=== PATIENT | female | born 1970 | race Caucasian/White ===

== ENCOUNTER → 2021-03-26 08:38 | Outpatient (BNVA) | payer MEDICAID, SELFPAY | PROVIDERS: PCP Nurse Practitioner Family; Visit Provider Nurse Practitioner Family | DX: E55.9 Vitamin D deficiency, unspecified (principal); I10 Essential (primary) hypertension; R10.11 Right upper quadrant pain; Z79.899 Other long term (current) drug therapy; Z13.6 Encounter for screening for cardiovascular disorders | CPT/HCPCS: 80061; 81003; 82306; 83036; 84439; 84443; 85025 ==

== ENCOUNTER 2021-04-07 22:12 | Emergency (ER) | payer MEDICAID, SELFPAY ==
[2021-04-07 22:27] VITALS: BP 126/64; PULSE 79; RESP 16; TEMP 36.7; O2SAT 98; BMI 43.2
--- NOTE | 2021-04-08 01:29 | ED_ITS ---
HPI - Abdominal Pain General: Chief Complaint: Abdominal Pain Stated Complaint: abd Pain, vomiting brown Time Seen by Provider: 04/08/21 00:39 Source: patient Mode of arrival: ambulatory Limitations: no limitations History of Present Illness: HPI narrative: 50-year-old female who states of last 2 months been having abdominal pain right upper quadrant states it is much worse with eating. States she ate tonight and felt nauseous denies any vomiting but had increasing pain tonight. She states that she supposed to be scheduled for an ultrasound of the gallbladder in May states her pain got much worse tonight. She denies any fevers. Denies any diarrhea. Her pain currently is a 4 out of 10 at its worst was an 8 out of 10. Associated Symptoms: Denies chills, diarrhea, dysuria, fever(s), nausea and vomiting Review of Systems Const: Denies: fever(s), chills, body aches or change in appetite Eyes: Denies: blurry vision or eye discomfort ENMT: Denies: throat pain or dental pain Card: Denies: chest pain Resp: Denies: dyspnea GI: Reports: abdominal pain; Denies: nausea, vomiting or diarrhea : Denies: dysuria Musc: Denies: neck pain or back pain Skin/Breast: Denies: rash Neuro: Denies: headache(s) Psych: Denies: depression Maycol/Lymph: Denies: easy bruising All/Imm: Denies: urticaria PFSH ED PFSH: Medical History (Updated 04/08/21 @ 03:52 by Saloni Heath MD) Essential hypertension Hypertension screen RUQ abdominal pain Vitamin D deficiency Social History Smoking and tobacco status: never smoked Physical Exam Const: COMMON NORMALS: no acute distress, patient oriented x3 and healthy appearing HENMT: COMMON NORMALS: normocephalic and atraumatic HEAD & SCALP: normocephalic and atraumatic Eye: COMMON NORMALS: Equal, round and reactive pupils present and EOMs intact bilaterally PUPIL: Yes Equal, round and reactive pupils present Neck/C-Spine: COMMON NORMALS: full ROM and supple Chest: COMMONS NORMALS: normal inspection of the chest and normal palpation of entire chest wall Resp: COMMON NORMALS: normal respiratory effort, No retractions, No use of accessory muscles and clear to auscultation bilaterally AUSCULTATION: clear to auscultation bilaterally Cardio: COMMON NORMALS: regular rate, regular rhythm and No murmurs present (Cardio) RATE: regular rate RHYTHM: regular rhythm GI: COMMON NORMALS: Normal to inspection, nondistended, normoactive bowel sounds present, Soft to palpation, non-tender and no masses PALPATION: Yes Soft to palpation Extremity: COMMON NORMALS: normal to inspection and full ROM Neuro: COMMON NORMALS: patient oriented x3, moves all extremities and no focal motor deficits Psych: COMMON NORMALS: mental status grossly normal, Normal thought process present and cooperative THOUGHT PROCESS: Normal thought process present Skin: COMMON NORMALS: no rashes or lesions noted and no wounds GENERAL SKIN EXAM: no rashes or lesions noted Course Vital Signs: Vital signs: Vital Signs Temperature 98.1 F 04/07/21 22:27 Pulse Rate 66 04/08/21 02:59 Respiratory Rate 18 04/08/21 02:59 Blood Pressure 151/81 04/08/21 02:59 Pulse Oximetry 100 04/08/21 02:59 MDM - Abdominal Pain MDM Narrative: Medical decision making narrative: Patient presents with abdominal pain likely from biliary colic from gallstones. Patient CT shows no sounds of cholecystitis does have gallstones. Blood work here is normal her pain is much improved here. We will get her follow-up with surgery and she is to return if worsening she understands agrees to plan. Lab Data: Labs: Lab Results 04/07/21 04/07/21 01:35 01:35 WBC 7.5 10^3/uL 10^3/ uL (4.0-10.0) RBC 5.06 10^6/uL 10^6 /uL (4.1-5.3) Hgb 14.1 g/dL g/dL (11.5-15.3) Hct 43.9 % % (37.0-47.0) MCV 86.8 fl fl (81-99) MCH 27.9 pg L pg (28.0-34.0) MCHC 32.1 g/dL g/dL (30.0-36.0) RDW 13.2 % % (12.1-15.1) Plt Count 361 10^3/cmm 10^3 /cmm (130-400) MPV 9.9 fL fL (7.4-10.4) Neut % (Auto) 49.4 % % Lymph % (Auto) 38.1 % % [place] % (Auto) 8.7 % % Eos % (Auto) 2.7 % % Baso % (Auto) 0.8 % % Neut # (Auto) 3.72 10^3/uL 10^3 /uL (1.8-7.7) Lymph # (Auto) 2.9 10^3/uL 10^3/ uL (0.8-4.8) [place] # (Auto) 0.7 10^3/uL 10^3/ uL (0.2-0.9) Eos # (Auto) 0.2 10^3/uL 10^3/ uL (0.0-0.8) Baso # (Auto) 0.1 10^3/uL 10^3/ uL (0.0-0.1) Nucleated RBC % (a uto) 0 % % Nucleated RBCs # 0.0 /100WBC /100W BC Sodium 140 mmol/L mmol/L (136-145) Potassium 3.6 mmol/L mmol/L (3.5-5.1) Chloride 103 mmol/L mmol/L (98-107) Carbon Dioxide 27 mmol/L mmol/L (22-29) Anion Gap 13.6 (5-19) BUN 14 mg/dL mg/dL (6-20) Creatinine 0.7 mg/dL mg/dL (0.5-0.9) GFR Calculation 88.6 mL/min L mL/ min (90-130) Glucose 93 mg/dL mg/dL (65-115) Calculated Osmolal ity 290 mOsm/kg mOsm/ kg (285-295) Calcium 9.3 mg/dL mg/dL (8.5-10.5) Total Bilirubin 0.3 mg/dL mg/dL (0.15-1.2) AST 13 U/L U/L (0-32) ALT 7 U/L U/L (0-33) Alkaline Phosphata se 63 IU/L IU/L (35-105) Total Protein 6.7 g/dL g/dL (6.6-8.7) Albumin 4.0 g/dL g/dL (3.5-5.2) Globulin 2.7 g/dL g/dL (1.3-4.6) Lipase 21 U/L U/L (13-60) Imaging Data ^: CT Abd/Pel: Radiologist's impression: [employer] [address] [employer] [address] [address] Scan Report Signed Patient: Viviane Calderon Unit #: [id number] : 1970 Age/Sex: 50 / F ADM Date: 04/07/21 Loc: ER Room/Bed: Attending Dr: Ordering Provider/Ordering MD: Saloni Heath MD Date of Service: 04/08/21 Procedure(s): CT abdomen pelvis w con* [id number] Accession Number(s): [id number] Report Number: [id number] PROCEDURE INFORMATION: Exam: CT Abdomen And Pelvis With Contrast Exam date and time: 04/08/2021 1:28 AM Age: 50 years old Clinical indication: Abdominal pain; Localized; Right upper quadrant (ruq); Additional info: Abd pain TECHNIQUE: Imaging protocol: Computed tomography of the abdomen and pelvis with contrast. Radiation optimization: All CT scans at this facility use at least one of these dose optimization techniques: automated exposure control; mA and/or kV adjustment per patient size (includes targeted exams where dose is matched to clinical indication); or iterative reconstruction. Contrast material: OMNI 300; Contrast volume: 95 ml; Contrast route: INTRAVENOUS (IV); COMPARISON: No relevant prior studies available. RADIATION DOSE METRICS: Total DLP (mGy-cm): 1928.3 FINDINGS: Lungs: The lung bases are clear. No effusion Liver: Liver is normal. Gallbladder and bile ducts: There is cholelithiasis without wall thickening or pericholecystic fluid. Pancreas: Pancreas is normal. Spleen: Spleen is normal. Adrenal glands: Adrenals are normal. Kidneys and ureters: Kidneys are normal. Stomach and bowel: Unremarkable. No obstruction. No mucosal thickening. Appendix: No evidence of appendicitis. Intraperitoneal space: Unremarkable. No free air. No significant fluid collection. Vasculature: Unremarkable. No abdominal aortic aneurysm. Lymph nodes: Unremarkable. No enlarged lymph nodes. Urinary bladder: Unremarkable as visualized. Reproductive: Unremarkable as visualized. Bones/joints: Unremarkable. No acute fracture. Soft tissues: Unremarkable. CT/CT abdomen pelvis w con* [id number] IMPRESSION: Cholelithiasis without cholecystitis. Radiation Dose CTDIVOL = (mGy): DLP = 1928.3 (mGy-cm) Dictated By: Jet Lennon Signed By: Jet Lennon Signed Date/Time: 04/08/21345 DD/ 0128 Discharge Plan Discharge Patient Disposition: Home Clinical Impression: Cholelithiasis Qualifiers: Cholelithiasis location: gallbladder Cholecystitis presence: without ch olecystitis Biliary obstruction: without biliary obstruction Qualified Code(s): K80.20 - Calculus of gallbladder without cholecystitis without obstruction Condition: Stable Prescriptions: New hydrocodone-acetaminophen 5-325 mg tablet 1 tab PO Q6H PRN (Reason: pain) Qty: 14 RF: 0 ondansetron 4 mg tablet,disintegrating 4 mg PO Q6H PRN (Reason: nausea and vomiting) Qty: 14 RF: 0 No Action omeprazole 40 mg capsule,delayed release(DR/EC) 40 mg PO DAILY RF: 0 lisinopril 5 mg tablet 5 mg PO QDAY Qty: 30 RF: 1 Discharge Orders: Discharge ED (Routine); Ordered 04/08/21 Ordered By: Saloni Heath Referrals: Prosper Davenport MD [Physician] - 1-3 days BOB Clark FNP [Primary Care Provider] - Discharge Diet: Advance as tolerated Discharge Activity: Resume usual activity Patient Instructions: Biliary Colic (ED), Gallstones (ED), Opioid Safety Coding Level of Care Code ED Tight Rope Walker for Chg Fwd Exam Comprehensive
[2021-04-08 01:44] VITALS: RESP 18; O2SAT 18
[2021-04-08] MEDS: sodium chloride 0.9% 1,000 ML 999 ML IV (01:44)
[2021-04-08] MEDS: morphine 4 mg/mL SDV 1 mL IVP (01:44)
[2021-04-08] MEDS: ondansetron 2 mg/ML SDV 2 mL 4 MG IVP (01:44)
[2021-04-08 01:46] VITALS: BP 151/81; PULSE 74; RESP 18; O2SAT 97
[2021-04-08 01:49] LABS: Basophils # 0.1 10^3/uL (0.0-0.1); Basophils % 0.8 %; Eosinophils # 0.2 10^3/uL (0.0-0.8); Eosinophils % 2.7 %; Hematocrit 43.9 % (37.0-47.0); Hemoglobin 14.1 g/dL (11.5-15.3); Lymphocytes # 2.9 10^3/uL (0.8-4.8); Lymphocytes % 38.1 %; Mean Corpuscular HGB Conc 32.1 g/dL (30.0-36.0); Mean Corpuscular Hemoglobin 27.9 pg (28.0-34.0); Mean Corpuscular Volume 86.8 fl (81-99); Mean Platelet Volume 9.9 fL (7.4-10.4); Monocytes # 0.7 10^3/uL (0.2-0.9); Monocytes % 8.7 %; Neutrophils # 3.72 10^3/uL (1.8-7.7); Neutrophils % 49.4 %; Nucleated Red Blood Cells % 0 %; Platelet Count 361 10^3/cmm (130-400); Red Blood Count 5.06 10^6/uL (4.1-5.3); Red Cell Distribution Width 13.2 % (12.1-15.1); White Blood Count 7.5 10^3/uL (4.0-10.0)
[2021-04-08 02:09] LABS: Alanine Aminotransferase 7 U/L (0-33); Alkaline Phosphatase 63 IU/L (35-105); Anion Gap 13.6 (5-19); Aspartate Amino Transferase 13 U/L (0-32); Blood Urea Nitrogen 14 mg/dL (6-20); Calcium 9.3 mg/dL (8.5-10.5); Carbon Dioxide 27 mmol/L (22-29); Chloride 103 mmol/L (98-107); Globulin 2.7 g/dL (1.3-4.6); Glomerular Filtration Rate 88.6 mL/min (90-130); Glucose 93 mg/dL (65-115); Lipase 21 U/L (13-60); Osmolality Calculated 290 mOsm/kg (285-295); Potassium 3.6 mmol/L (3.5-5.1); Sodium 140 mmol/L (136-145); Total Bilirubin 0.3 mg/dL (0.15-1.2); Total Protein 6.7 g/dL (6.6-8.7)
[2021-04-08] MEDS: iohexol 300 mg/mL 100 mL Btl IV (02:30)
[2021-04-08 02:59] VITALS: BP 151/81; PULSE 66; RESP 18; O2SAT 100
[2021-04-08 04:13] VITALS: BP 110/71; PULSE 66; RESP 16; O2SAT 100
--- NOTE | 2021-04-09 09:43 | DCPLANNER ---
manager semiconductor had message to schedule a follow up appointment for patient with Dr. Davenport. manager semiconductor called the office of Dr. Davenport, spoke with Nadege, gave clinic patients information. manager semiconductor was told that patient had called clinic to schedule an appointment, but that patient is needing to be seen by [facility] for the sue program. manager semiconductor emailed patients information to Stephania Daniel and Lisette. Patients information will be printed and reviewed. Clinic will call patient with appointment information.
--- NOTE | 2021-04-10 15:59 | DCPLANNER ---
Patient has a follow up appointment scheduled for Wednesday, April 14, 2021 at 1:[address] Nevarez at [facility] General Surgery. Clinic will call patient with appointment information.
--- NOTE | 2021-04-17 08:21 | DCPLANNER ---
Patient had a follow up appointment scheduled for 04.14.[address] Nevarez at general surgery - patient did attend appointment.
== END 2021-04-08 04:14 | disposition home or self-care (01) ==
PROVIDERS: Emergency Provider Emergency Medicine; PCP Nurse Practitioner Family
DX: K80.20 Calculus of gallbladder without cholecystitis without obstruction (principal); I10 Essential (primary) hypertension
CPT/HCPCS: 74177; 80053; 83690; 85025; 96361; 96374; 96375; 99284; J2270; J2405; J7030; Q9967

== ENCOUNTER 2021-04-18 11:10 | Observation (INO) | payer MEDICAID, SELFPAY ==
[2021-04-18] VITALS (7 sets, daily range): BP systolic 111–131; BP diastolic 47–84; PULSE 67–75; RESP 16–20; TEMP 36.4–37.2; O2SAT 97–98; BMI 43.2; BMI 42.3
--- NOTE | 2021-04-18 11:13 | ED_ITS ---
HPI - Abdominal Pain General: Chief Complaint: Abdominal Pain Stated Complaint: Abdominal Pain Time Seen by Provider: 04/18/21 11:13 History of Present Illness: HPI narrative: Ms. Calderon is a 50-year-old lady with history of hypertension and hyperlipidemia and known cholelithiasis who presents emergency department due to right upper quadrant abdominal pain. Symptom onset has been a number of months ago and symptoms were initially mild and intermittent. Typically these were triggered by fatty meals however over time the course has become more intense, more frequent and she presented to the emergency department on 04/08 was found to have cholelithiasis without cholecystitis at this time. She was referred for outpatient surgery and had an appointment on 04/14 with planned outpatient cholecystectomy. Over the past 2 days her pain is increased in intensity and become constant. Her symptoms are worse with movement. Moderate to severe in intensity. Aching and sharp in quality. She has associated nausea and vomiting as well as diarrhea. She was u nable to tolerate her medications this morning as she vomited them up. No other specific changes in health, signs of systemic illness, or other specific exacerbating or alleviating factors identified. Review of Systems General: Reports: 10 or more systems reviewed and unremarkable except in HPI and below PFSH ED PFSH: Medical History (Updated 04/19/21 @ 15:28 by Diego Nevarez MD) Essential hypertension Hypertension screen RUQ abdominal pain Symptomatic cholelithiasis Vitamin D deficiency Physical Exam Narrative: EXAM NARRATIVE: GENERAL/CONSTITUTIONAL - well-appearing. Uncomfortable appearing due to abdominal pain. Eyes -no scleral icterus, no conjunctival injection ENMT - Atraumatic external nose and ears. Moist mucous membranes NECK - supple. trachea midline CARDIOVASCULAR - regular rate and rhythm. RESPIRATORY -clear to auscultation bilaterally. Mildly limited inspiration with deep inspiration due to right upper quadrant abdominal pain. ABDOMEN/GI - right upper quadrant tenderness to palpation without Tellez. No tenderness to percussion or evidence of peritonitis MSK - Extremities without obvious deformity or tenderness to palpation SKIN - Warm, Dry NEURO - alert and appropriately oriented. Moves all extremities equally. Course ED course: - Patient was seen and evaluated by me at bedside - Patient placed on cardiac monitors, IV access obtained - Initial evaluation notable for nontoxic appearance, uncomfortable due to pain. Right upper quadrant tenderness to palpation. -Symptom treatment ordered. - Labs notable for no leukocytosis, normal transaminases, normal lipase. - Imaging notable for thickened gallbladder wall without other secondary findings of cholecystitis. - Upon serial reexamination after treatment the patient was improved with analgesia transiently - Based on patient history, evaluation, labs, and imaging as interpreted the most likely cause of the patient's condition is symptomatic cholelithiasis with evidence of cholecystitis. - Discussed with Dr Nevarez who agreed to admit the patient. Antibiotics ordered. N.p.o. status. Fluids and pain control ordered. - The results of ED evaluation were discussed with the patient including plan for admission for further evaluation of surgical options. - Patient was admitted without further deterioration or significant events. Vital Signs: Vital signs: Vital Signs Temperature 97.9 F 04/19/21 17:45 Pulse Rate 87 04/19/21 17:45 Respiratory Rate 18 04/19/21 17:45 Blood Pressure 107/69 04/19/21 17:45 Pulse Oximetry 93 04/19/21 17:45 MDM - Abdominal Pain Medical Records: Attestation: I reviewed the patient's medical records. Lab Data: Attestation: I reviewed the patient's lab results. Labs: Lab Results 04/18/21 04/18/21 04/18/21 11:46 11:46 11:46 WBC 6.3 10^3/uL 10^3/ uL (4.0-10.0) RBC 5.26 10^6/uL 10^6 /uL (4.1-5.3) Hgb 14.7 g/dL g/dL (11.5-15.3) Hct 45.1 % % (37.0-47.0) MCV 85.7 fl fl (81-99) MCH 27.9 pg L pg (28.0-34.0) MCHC 32.6 g/dL g/dL (30.0-36.0) RDW 13.4 % % (12.1-15.1) Plt Count 316 10^3/cmm 10^3 /cmm (130-400) MPV 10.7 fL H fL (7.4-10.4) Neut % (Auto) 58.7 % % Lymph % (Auto) 30.3 % % [place] % (Auto) 7.9 % % Eos % (Auto) 2.1 % % Baso % (Auto) 0.8 % % Neut # (Auto) 3.70 10^3/uL 10^3 /uL (1.8-7.7) Lymph # (Auto) 1.9 10^3/uL 10^3/ uL (0.8-4.8) [place] # (Auto) 0.5 10^3/uL 10^3/ uL (0.2-0.9) Eos # (Auto) 0.1 10^3/uL 10^3/ uL (0.0-0.8) Baso # (Auto) 0.1 10^3/uL 10^3/ uL (0.0-0.1) Nucleated RBC % (a uto) 0 % % Nucleated RBCs # 0.0 /100WBC /100W BC Sodium 133 mmol/L L mmol /L (136-145) Potassium 4.0 mmol/L mmol/L (3.5-5.1) Chloride 98 mmol/L mmol/L (98-107) Carbon Dioxide 25 mmol/L mmol/L (22-29) Anion Gap 14.0 (5-19) BUN 11 mg/dL mg/dL (6-20) Creatinine 0.8 mg/dL mg/dL (0.5-0.9) GFR Calculation 75.9 mL/min L mL/ min (90-130) Glucose 84 mg/dL mg/dL (65-115) Calculated Osmolal ity 275 mOsm/kg L mOs m/kg (285-295) Calcium 9.3 mg/dL mg/dL (8.5-10.5) Total Bilirubin 0.7 mg/dL mg/dL (0.15-1.2) AST 11 U/L U/L (0-32) ALT 11 U/L U/L (0-33) Alkaline Phosphata se 57 IU/L IU/L (35-105) Troponin T Baselin e 6 ng/L ng/L (0-10) Total Protein 7.4 g/dL g/dL (6.6-8.7) Albumin 4.1 g/dL g/dL (3.5-5.2) Globulin 3.3 g/dL g/dL (1.3-4.6) Lipase 17 U/L U/L (13-60) EKG Data ^: EKG 1: Attestation: I personally reviewed and interpreted this EKG as follows: EKG interpretation date: 04/18/21 EKG interpretation time: 12:18 Interpretation: Twelve-lead EKG shows a regular rhythm at a rate of 69. AK interval 139, QRS duration 92, QTc 424. Normal axis. Interpretation: Sinus rhythm. Ectopy. Discharge Plan Discharge Patient Disposition: Admitted As Inpatient Admit Provider: Diego Nevarez Condition: Stable Discharge Diet: Advance as tolerated Discharge Activity: Limit activity as instructed Coding Level of Care Code ED Entry Level Manufacturing Engineer for Courtney Vasquez
--- NOTE | 2021-04-18 11:22 | US_ITS ---
WS: [id number] ULTRASOUND ABDOMEN LIMITED CLINICAL INFORMATION: biliary, RUQ pain, known cholelithiasis, eval cholecystitis COMPARISON: CT April 08, 2021 FINDINGS: Bile ducts Intrahepatic ducts: Normal. Common bile duct diameter: 0.6 cm. Gallbladder Enlarged gallbladder with thickened wall. Prominent gallstone in gallbladder neck. Gallbladder sludge . Common bile duct within normal limits. No pericholecystic fluid. Gallstones: Present Gallbladder sludge: Present Gallbladder wall thickening: Present Pericholecystic fluid: None. Sonographic Tellez sign: Absent. US/US gall bladder [id number] IMPRESSION: 1. Cholelithiasis with prominent shadowing gallstone near the gallbladder neck . 2. Enlarged gallbladder with wall thickening measuring 6.2 mm suspicious for c holecystitis. However, no significant pericholecystic fluid. Further evaluation with HIDA scan may be helpful. 3. Normal common bile duct.
--- NOTE | 2021-04-18 11:23 | ECG_ITS ---
[facility] Test Date: 2021-04-18 Pat Name: Viviane Calderon Department: Room: Gender: Female Tax Representative: : 1970 Requested By: Tyrel Meier Order Number: [id number] Jaja MD: Saeid Lewis M.D. Measurements Intervals [place] Rate: 69 P: 52 RI: 139 QRS: 34 QRSD: 92 T: 27 QT: 394 QTc: 424 Interpretive Statements SINUS RHYTHM WITH OCCASIONAL VENTRICULAR PREMATURE COMPLEXES LOW QRS VOLTAGE IN PRECORDIAL LEADS [QRS DEFLECTION < 1.0 mV IN CHEST LEADS] No previous ECG available for comparison Electronically Signed On 04-18-2021 19:50:00 EDUCATIONAL RESOURCE COORDINATOR by Saeid Lewis M.D. [id number]
[2021-04-18 12:18] LABS: Alanine Aminotransferase 11 U/L (0-33); Albumin Level 4.1 g/dL (3.5-5.2); Alkaline Phosphatase 57 IU/L (35-105); Aspartate Amino Transferase 11 U/L (0-32); Blood Urea Nitrogen 11 mg/dL (6-20); Calcium 9.3 mg/dL (8.5-10.5); Carbon Dioxide 25 mmol/L (22-29); Chloride 98 mmol/L (98-107); Globulin 3.3 g/dL (1.3-4.6); Glomerular Filtration Rate 75.9 mL/min (90-130); Glucose 84 mg/dL (65-115); Lipase 17 U/L (13-60); Osmolality Calculated 275 mOsm/kg (285-295); Sodium 133 mmol/L (136-145); Total Bilirubin 0.7 mg/dL (0.15-1.2); Total Protein 7.4 g/dL (6.6-8.7)
[2021-04-18 12:20] LABS: Troponin(5th) Baseline 6 ng/L (0-10)
[2021-04-18 12:27] LABS: Basophils # 0.1 10^3/uL (0.0-0.1); Basophils % 0.8 %; Eosinophils # 0.1 10^3/uL (0.0-0.8); Eosinophils % 2.1 %; Hematocrit 45.1 % (37.0-47.0); Hemoglobin 14.7 g/dL (11.5-15.3); Lymphocytes # 1.9 10^3/uL (0.8-4.8); Lymphocytes % 30.3 %; Mean Corpuscular HGB Conc 32.6 g/dL (30.0-36.0); Mean Corpuscular Hemoglobin 27.9 pg (28.0-34.0); Mean Corpuscular Volume 85.7 fl (81-99); Mean Platelet Volume 10.7 fL (7.4-10.4); Monocytes # 0.5 10^3/uL (0.2-0.9); Monocytes % 7.9 %; Neutrophils % 58.7 %; Nucleated Red Blood Cells % 0 %; Platelet Count 316 10^3/cmm (130-400); Red Blood Count 5.26 10^6/uL (4.1-5.3); Red Cell Distribution Width 13.4 % (12.1-15.1); White Blood Count 6.3 10^3/uL (4.0-10.0)
[2021-04-18] MEDS: morphine 4 mg/mL SDV 1 mL IVP ×2 (12:29→21:12)
[2021-04-18] MEDS: ondansetron 2 mg/ML SDV 2 mL 4 MG IVP ×2 (12:34→21:12)
--- NOTE | 2021-04-18 12:43 | PC.NURSE ---
Pt refused to be placed back on his BiPAP to both nursing staff and RT staff. Pt instructed on how to notify nursing if he wishes to be placed back on his BiPAP
[2021-04-18 14:06] LABS: Troponin 5 2HR Delta 0 ABS# (0-10)
--- NOTE | 2021-04-18 18:09 | PM.HP ---
Providers/Chief Complaint Admitting Physician: Diego Nevarez MD Primary Care Provider: ROMIE Sethi Chief Complaint: Abdominal Pain History of Present Illness Chief Complaint: My tummy hurts History of present illness: Ms Viviane Calderon is a 50 year old female with history of symptomatic cholelithiasis and was seen recently in my office back on 04/14/2021. With the plan to obtain a dedicated ultrasound of the liver and gallbladder and proceed with laparoscopic cholecystectomy. Patient basically today felt worse with having right sided abdominal pain and associated nausea, reports pain is being sharp in quality and has been having diarrhea. Patient was further work-up in the ER an ultrasound of the liver and gallbladder was done that showed: 1. Cholelithiasis with prominent shadowing gallstone near the gallbladder neck. 2. Enlarged gallbladder with wall thickening measuring 6.2 mm suspicious for cholecystitis. However, no significant pericholecystic fluid. Further evaluation with HIDA scan may be helpful. 3. Normal common bile duct. General surgery was consulted for further evaluation Review of Systems General: Reports: 10 or more systems reviewed and unremarkable except in HPI and below Medications/Allergies Home Medications Medication Instructions Recorded Confirmed Last Taken Type omeprazole 40 mg capsule,delayed 40 mg PO DAILY 03/21/21 04/18/21 04/18/21 History release hydrocodone-acetaminophen 1 tab PO Q6H PRN #14 tab 04/08/21 04/18/21 Unknown Rx ondansetron 4 mg PO Q6H PRN #14 tab 04/08/21 04/18/21 Unknown Rx lisinopril 5 mg PO DAILY 04/18/21 04/18/21 04/18/21 History Allergies Allergy/AdvReac Type Severity Reaction Status Date / Time No Known Allergies Allergy Verified 04/18/21 18:24 PFSH Acute PFSH: Medical History Essential hypertension Hypertension screen RUQ abdominal pain Vitamin D deficiency Vitals/I&O/Wt Last Vital Signs Temp 99.0 F 04/18/21 11:20 Pulse 70 04/18/21 12:34 Resp 18 04/18/21 12:34 BP 115/47 04/18/21 12:34 Pulse Ox 97 04/18/21 12:34 Weight last 48 hrs Weight 260 lb Physical Exam Narrative: EXAM NARRATIVE: Patient is conscious alert oriented X3 BMI 43.3 Head and neck examination PERRLA no masses no cervical lymphadenopathy no jaundice Cardiac examination audible S1-S2 no murmurs no gallops no arrhythmias Chest is clear bilateral,abscence of Rhonchi or wheezes,no surgical emphysema Abdomen slightly tender right upper quadrant nondistended soft no organomegaly guarding or rigidity/no signs of peritonitis Extremities no cyanosis no clubbing no edema Data : 04/18/21 11:46 04/18/21 11:46 A&P Assessment and plan (1) Symptomatic cholelithiasis: Plan of care; N.p.o. and IV fluid resuscitation Zosyn 3.375 every 6 hours IV After thorough history physical examination and reviewing the chart and images with my personal intrepreatation.I counseled the patient for laparoscopic cholecystectomy possible open, indications risks including but not limited injury to the common bile duct and/or other viscera,that may require potential future surgical interventions including but not limited to ERCP and or laparatomy that may include Hepatobiliary surgery.Benefits and alternatives all discussed with the patient, and patient did agree to proceed accordingly. All questions have been answered and all concerns have been addressed to patient's satisfaction. Rationale was carefully and clearly discussed with the patient.Appropriate informed consent have been reviewed and signed. Status: Acute Attestations Medical Necessity Statement*: Observation status for perioperative Time Spent in Patient Care: (>than 50% of time spent in counselling and/or direct pt care on unit). Coding Level of Care Code Acute Medical Reception for Lorraine Pedro Diagnoses Symptomatic cholelithiasis K80.20
[2021-04-18] MEDS: sodium chloride 0.9% 1,000 ML 150 ML IV (21:13)
[2021-04-18] MEDS: piperacillin-tazobactam 3.375 GM in sodium chloride 0.9% (plus) 50 ML IV (21:14)
[2021-04-19] VITALS (8 sets, daily range): BP systolic 92–124; BP diastolic 57–81; PULSE 64–87; RESP 18–19; TEMP 36.6–36.9; O2SAT 93–97
[2021-04-19] MEDS: sodium chloride 0.9% 1,000 ML 150 ML IV ×2 (03:38→11:55)
[2021-04-19] MEDS: piperacillin-tazobactam 3.375 GM in sodium chloride 0.9% (plus) 50 ML IV ×2 (03:39→11:54)
[2021-04-19] MEDS: HYDROcodone-acetaminophen 5-325 mg Tablet 1 TAB PO (11:53)
--- NOTE | 2021-04-19 15:27 | PM.SDS ---
Short Stay Summary Providers Date of Admit/Discharge: 04/19/21 Attending Provider: Diego Nevarez MD Primary Care Provider: ROMIE Sethi Chief Complaint: Abdominal Pain HPI History of Present Illness Ms. felix is a pleasant 50 years old female patient morbidly obese with a current weight of 260 pounds and a BMI 43.2. Patient has been having right upper quadrant abdominal pain being sharp referred to the back and gets worse with greasy food and better by nothing she has been experiencing this issue for the past 3 to [address] scan 04/08/2021 of the abdomen pelvis that showed; Liver: Liver is normal. Gallbladder and bile ducts: There is cholelithiasis without wall thickening or pericholecystic fluid. Patient's liver function tests are within normal limits Unfortunately ultrasound dedicated study of the liver and gallbladder is not available at the moment. Review of Systems General: Reports: 10 or more systems reviewed and unremarkable except in HPI and below Home Meds/Allergies Home Medications and Allergies Home Medications Medication Instructions Recorded Confirmed Type omeprazole 40 mg capsule,delayed 40 mg PO DAILY 03/21/21 04/18/21 History release lisinopril 5 mg PO DAILY 04/18/21 04/18/21 History Allergies Allergy/AdvReac Type Severity Reaction Status Date / Time No Known Allergies Allergy Verified 04/18/21 18:24 PFSH Acute PFSH: Medical History (Updated 04/19/21 @ 15:28 by Diego Nevarez MD) Essential hypertension Hypertension screen RUQ abdominal pain Symptomatic cholelithiasis Vitamin D deficiency Vitals/I&O/Wt Last Vital Signs Temp 97.9 F 04/19/21 15:23 Pulse 87 04/19/21 15:23 Resp 18 04/19/21 15:23 BP 107/69 04/19/21 15:23 Pulse Ox 93 04/19/21 15:23 04/19/21 04/19/21 04/19/21 06:59 14:59 22:59 Intake Total 1012.5 / 1012.5 1360 / 1360 Output Total 100 / 100 Balance 1012.5 / 1012.5 1260 / 1260 Weight last 48 hrs Weight 254 lb 1 oz Weight 260 lb Physical Exam Narrative: EXAM NARRATIVE: Patient is conscious alert oriented X3 BMI 42.3 Head and neck examination PERRLA no masses no cervical lymphadenopathy no jaundice Abdomen incision sites are tender, otherwise nondistended soft no organomegaly guarding or rigidity/no signs of peritonitis Extremities no cyanosis no clubbing no edema Hospital Course Hospital Course Patient did well post operatively, tolerated p.o. intake and pain is under control by p.o. pain medication. Continue to have stable vital signs and adequate urine output. No acute events in the postoperative time spent in the hospital. Patient met the appropriate criteria for safe discharge home. Discharge Summary 50 years old female patient undergone uneventful laparoscopic cholecystectomy. Patient continued to have stable vital signs and adequate urine output. Tolerating p.o. intake and met the appropriate criteria for discharge home. Patient will be discharged on oral antibiotics Augmentin 875 mg twice daily for 7 days and pain medications. SSS Data Data Completed and Pending: Completed Studies During Hospitalization Category Date Time Status gall bladder 7 [id number] Urgent Ultrasound 04/18/21 11:22 Completed Diagnoses at Discharge Discharge Diagnosis (1) Symptomatic cholelithiasis: Status: Resolved Discharge Plan Discharge Patient Disposition: Home Condition: Stable Prescriptions: New hydrocodone-acetaminophen 5-325 mg tablet 1 tab PO Q6H PRN (Reason: pain) Qty: 20 RF: 0 amoxicillin-pot clavulanate [Augmentin] 875-125 mg tablet 1 tab PO Q12H Qty: 14 RF: 0 Continued omeprazole 40 mg capsule,delayed release(DR/EC) 40 mg PO DAILY RF: 0 hydrocodone-acetaminophen 5-325 mg tablet 1 tab PO Q6H PRN (Reason: pain) Qty: 14 RF: 0 ondansetron 4 mg tablet,disintegrating 4 mg PO Q6H PRN (Reason: nausea and vomiting) Qty: 14 RF: 0 lisinopril 5 mg tablet 5 mg PO DAILY RF: 0 Discharge Orders: Discharge Order (Routine); Ordered 04/19/21 Ordered By: Diego Nevarez Referrals: Diego Nevarez MD [Physician] - (Return to surgery office in 7 to 10 days) BOB Clark, ASSISTANT RESEARCH SCIENTIST [Primary Care Provider] - Discharge Diet: Advance as tolerated Discharge Activity: Limit activity as instructed Patient Instructions: Opioid Safety Activity Restrictions/Additional Instructions: Post discharge instructions: 1. Patient can shower after 24 hours from surgery. Do not soak in bathtub, swimming pool or hot tub for 4 weeks after surgery. 2. Leave incisions open to air, do not apply triple antibiotic ointment or medications on the incisions. Activity 3. Up and walking as tolerated 4. Do not lift more than 5 pounds first 2 weeks after surgery and not more than 25 pounds 6 to 8 weeks after surgery. Driving 5. Do not operate heavy machinery or drive while using pain medications Diet Full liquid diet for today and tomorrow and Wednesday start to advance to soft GI diet and focus on lactose-free protein shakes 3 to 4 cans a day. Pain control Patient was given a prescription for oxycodone as a limited amount till is being evaluated by his pain management team this coming Wednesday. Nausea Nausea is common after surgery, take nausea medications as needed and stay on a liquid bland diet until nausea resolves. Breathing Patient was encouraged and was given incentive spirometer to use at home 10 times an hour while awake Call the office at [phone] during office hours or go the Emergency Room after hours for - ?Fever to 100.4 or greater ?Shaking chills ?Pain that increases over time ?Redness, warmth, or pus draining from incision sites ?Persistent nausea or inability to take in liquids Attestations Medical Necessity Statement*: Patient was in observation status for perioperative care Time Spent in Patient Care*: greater than 30 min Specific Discharge Activities: Specific discharge activities: educating patient Status at Discharge: Cognitive status at discharge: cognitively intact, Behavioral status at discharge: cooperative, Functional status at discharge: independent ambulation Overall status at discharge: patient is progressing back to baseline Quality Metrics Clinical Quality Measures: During this hospital stay, did patient experience: None Coding Level of Care Code Acute Vocational Nursing Instructor for Courtney Vasquez Diagnoses Symptomatic cholelithiasis K80.20
--- NOTE | 2021-04-19 15:44 | P.OP_ITS ---
Operative Report Date of procedure: April 19, 2021 Pre-op Diagnosis: Symptomatic cholelithiasis Post-op diagnosis: other Post-op Diagnosis: Acute on top of chronic calculus cholecystitis with extensive adhesion Procedure Done: 1-Laparoscopic cholecystectomy 2-Extensive adhesiolysis exceeded 1 hour of the operative time Implants: 2 pieces of Surgicel at the gallbladder fossa Specimens removed/disposition: Gallbladder and contents Surgeon: Diego Nevarez Graphic Design Intern: Surgical techlavinia Lozoya Anesthesia: General (CHAYA Villeda and Dr. Daigle) Estimated blood loss (mL): 50 IV fluids (mL): 1,300 Condition: stable Disposition: observation Procedure: Patient was identified in the holding area and taken back to the operative suite, placed in supine position intubated by anesthesia . Time-out was done verifying the patient's name/date of /planned procedure and destination after the procedure, all were in agreement. SCDs confirmed to be functioning, preoperative antibiotics administered per protocol, and beta marc protocol was confirmed. Patient was appropriately secured to the table, footboard was applied to the OR table, before prep and drape anesthesia was asked to tilt the table back and forth to make sure that the patient is appropriately secured and she was. Prep and drape of the abdomen was done under the usual sterile technique, followed by that supraumbilical skin incision,skin incision was done by a 15 blade knife, and stay sutures were applied to the fascia and Avalos trocar technique was used to enter the abdominal without injuring any abdominal viscera, started by low flow gas insufflation followed by a high flow, started with a 10 mm laparoscope and under direct vision there was no evidence of any injuries, the scope then switched to a 30? ,10 millimeter scope and under direct visualization 5 millimeter trocar was inserted in the epigastric region followed by two 5 mm trocars were inserted in the right upper quadrant that was done after injection of local lidocaine 2% at all incision sites. Gallbladder showed acute calculus cholecystitis with extensive edema &with adhesions, liver was noticed to be enlarged due to fatty component. Patient was then positioned in the head up and tilted to the left Ratcheted forceps were introduced into the lateral most 5mm port and was applied unto the fundus of the gallbladder cephalad and using Bullet forceps the infundibulum of the gallbladder was retracted laterally. Gallbladder was surrounded by extensive adhesions and more than 1 hour adhesions were taken down in the form of extensive adhesiolysis. Using LigaSure energy device. Using [place] forceps then L-hook cautery to dissect the peritoneum overlying the [facility]'s [facility] was then opened medially and laterally until the cystic duct and the cystic artery were skeletonized. Dissection was carried along the body of the gallbladder and after ensuring critical view of safety was identfied. Cystic duct and cystic artery where seen connected to the gallbladder. Clips were applied on the cystic duct towards the common bile duct 1 towards the gallbladder then divided is in sharp scissors, 2 clips were then applied onto the cystic artery and 1 towards the gallbladder and divided by sharp scissors. Dissection was then carried along of the gallbladder from the gallbladder fossa using cautery as well as sharp dissection with heat energy. The gallbladder then was dissected out from the gallbladder fossa totally , cholecystectomy was then achieved and was placed in an Endo Catch bag and then retrieved from the Avalos trocar site under direct visualization using a 5 mm 30? scope through the epigastric trocar, there was a large stone that made extraction of the specimen difficult so I had to cut through the fascia to deliver the specimen safely. Specimen was then passed to the circulating nurse to go for permanent pathology,irrigation and hemostasis was done to the gallbladder fossa after hemostasis was secured by placement of 2 pieces of Surgicel at the gallbladder fossa, final survey laparoscopy was done that showed no injuries. Suction irrigation was obtained. The hepatic flexure was checked and there was no injuries of the colon. Gas was allowed to deflate,Trocars were then taken out under direct vision there was no evidence of bleeding The supraumbilical fascial defect was then closed using interrupted #1 PDS figure of 8 sutures in an open fashion under direct visualization followed by copious and thorough irrigation of all incisions then 2-0 Vicryl was used for deep subdermal of the supraumbilical incision and all skin incisions were closed by skin vinay. Dressing was applied in the form of band aids and the patient patient got extubated and was taken to recovery area in a stable condition. Double count of sponges, needles and instruments were completed at the end of the procedure I was present for the whole entire procedure.
== END 2021-04-19 17:46 | disposition home or self-care (01) ==
LOC: ER 14:37 → MEDSURG 18:53
PROVIDERS: Admitting Provider Surgery; Emergency Provider Emergency Medicine; PCP Nurse Practitioner Family; Visit Provider Surgery
DX: K80.12 Calculus of gallbladder with acute and chronic cholecystitis without obstruction (principal); I10 Essential (primary) hypertension; E55.9 Vitamin D deficiency, unspecified; E66.01 Morbid (severe) obesity due to excess calories; Z68.41 Body mass index [BMI] 40.0-44.9, adult
CPT/HCPCS: 47562; 36415; 76705; 80053; 83690; 84484; 84702; 85025; 93005; 93976; 96365; 96367; 96375; 96376; 99285; G0378; J1100; J1200; J1885; J2270; J2370; J2405; J2543; J2704; J2710; J3010; J3490; J7030

== ENCOUNTER 2021-04-19 07:21 | Emergency (ER) | payer MEDICAID, SELFPAY ==
[2021-04-19] VITALS (12 sets, daily range): BP systolic 90–146; BP diastolic 53–85; PULSE 56–71; RESP 16–20; TEMP 36.4–37.1; O2SAT 95–100
--- NOTE | 2021-04-19 07:34 | ANES.PREANE2 ---
Pre-Anesthetic Assessment Pre-Anesthetic Assessment: Height/Weight: Height 1.65 m Preop Diagnosis: gallstones Proposed Procedure: Operation Date: 04/19/21 08:20 Proposed Procedures p Laparoscopic Cholecystectomy, POSSIBLE OPEN(Not Applicable) - Diego Nevarez MD Familial anesthetic complications: no personal history, no family hx of problems Was Beta Stacey taken within 24 hours: N/A Was Clonidine taken within 24 hours: N/A Last intake: > 8 hrs Social: Social History: No alcohol and No tobacco Exam: Pre-Anes Outpt Exam: alert, oriented x 3, clear to auscultation bilaterally and regular rate & rhythm Airway: Cervical ROM: WNL MP: 3 Dentition: Other (multiple missing, poor dentition all of em are loose ) CV/HEM: CV/HEM: HTN Metabolic: Metabolic: Morbid obesity Anesthetic Plan: ASA status: 2 Anesthesia: General Risk of > 500 ml blood loss (7ml/kg in children): No PFSH Anesthesia PFSH: Medical History Essential hypertension Hypertension screen RUQ abdominal pain Vitamin D deficiency Data Anesthesia Cardiac Studies: No Data to Display
[2021-04-19] MEDS: acetaminophen 1,000 MG/100 ML PIGGYBACK 400 MG IV (07:48)
[2021-04-19] MEDS: ampicillin-sulbactam 3 GM in sodium chloride 0.9% (plus) 50 ML IV (08:00)
[2021-04-19] MEDS: lidocaine 2% INJ 20 mL INJECTION (08:32)
--- NOTE | 2021-04-19 10:13 | P.OP_ITS ---
Operative Report Date of procedure: April 19, 2021 Pre-op Diagnosis: Symptomatic cholelithiasis Post-op diagnosis: other Post-op Diagnosis: Acute on top of chronic calculus cholecystitis Post-op Findings: Pericholecystic omental adhesions Procedure Done: 1-Laparoscopic cholecystectomy 2-Extensive adhesiolysis Implants: 2 pieces of Surgicel at the gallbladder fossa Specimens removed/disposition: Gallbladder and contents Surgeon: Diego Nevarez Workers Compensation Claims Examiner: Surgical polly Vera and Laurie Circulating nurse Julia Anesthesia: General (CHAYA Villeda and Dr. Daigle) Estimated blood loss (mL): 50 IV fluids (mL): 1,300 Condition: stable Disposition: floor Procedure: Patient was identified in the holding area and taken back to the operative suite, placed in supine position intubated by anesthesia . Time-out was done verifying the patient's name/date of /planned procedure and destination after the procedure, all were in agreement. SCDs confirmed to be functioning, preoperative antibiotics administered per protocol, and beta marc protocol was confirmed. Patient was appropriately secured to the table, footboard was applied to the OR table, before prep and drape anesthesia was asked to tilt the table back and forth to make sure that the patient is appropriately secured and she was. Prep and drape of the abdomen was done under the usual sterile technique, followed by that supraumbilical skin incision,skin incision was done by a 15 blade knife, and stay sutures were applied to the fascia and Avalos trocar technique was used to enter the abdominal without injuring any abdominal viscera, started by low flow gas insufflation followed by a high flow, started with a 10 mm laparoscope and under direct vision there was no evidence of any injuries, the scope then switched to a 30? ,10 millimeter scope and under direct visualization 5 millimeter trocar was inserted in the epigastric region followed by two 5 mm trocars were inserted in the right upper quadrant that was done af ter injection of local lidocaine 2% at all incision sites. Gallbladder showed acute calculus cholecystitis with extensive edema &with adhesions and hepatomegaly likely due to fatty liver. Patient was then positioned in the head up and tilted to the left Ratcheted forceps were introduced into the lateral most 5mm port and was applied unto the fundus of the gallbladder cephalad and using Bullet forceps the infundibulum of the gallbladder was retracted laterally. Extensive adhesiolysis exceeded 1 hour of the operative time to take adhesions down to expose the gallbladder and dissect it. To obtain a critical view. LigaSure device was used to take adhesions down. After taking omental adhesions down the hepatic flexure was checked and it was intact without injuries. Using [place] forceps then L-hook cautery to dissect the peritoneum overlying the Calot's triangle which was then opened medially and laterally until the cystic duct and the cystic artery were skeletonized. Dissection was carried along the body of the gallbladder and after ensuring critical view of safety was identfied. Cystic duct and cystic artery where seen connected to the gallbladder. Clips were applied on the cystic duct towards the common bile duct 1 towards the gallbladder then divided is in sharp scissors, 2 clips were then applied onto the cystic artery and 1 towards the gallbladder and divided by sharp scissors. Dissection was then carried along of the gallbladder from the gallbladder fossa using cautery as well as sharp dissection with heat energy. The gallbladder then was dissected out from the gallbladder fossa totally , cholecystectomy was then achieved and was placed in an Endo Catch bag and then retrieved from the Avalos trocar site under direct visualization using a 5 mm 30? scope through the epigastric trocar(noticed that the patient had a very large gallbladder stone that took some time delivering it from the Avalos trocar site and I had to cut through the fascia to deliver the specimen out in the Endo Catch bag.), specimen was then passed to the circulating nurse to go for permanent pathology,irrigation and hemostasis was done to the gallbladder fossa after hemostasis was secured ultimately by placement of 2 pieces of Surgicel, final survey laparoscopy was done that showed no injuries. Suction irrigation was obtained Gas was allowed to deflate,Trocars were then taken out under direct vision there was no evidence of bleeding The supraumbilical fascial defect was then closed using interrupted #1 PDS sutures using open technique. under direct visualization Specimen was passed to the circulating nurse for permanent pathology. No drains were placed and the supraumbilical incision as well as all trocar sites were closed by 2/0 Vicryl followed by skin vinay to approximate the skin edges of the supraumbilical incision, dressing was applied in the form of band aids and the patient patient got extubated and was taken to recovery area in a stable condition. Count of sponges, needles and instruments were completed at the end of the procedure I was present for the whole entire procedure.
[2021-04-19] MEDS: HYDROmorphone 1 mg/mL INJ 1 mL 0.5 MG IVP ×2 (10:32→10:50)
--- NOTE | 2021-04-19 11:09 | SUR.PHASEI ---
PT TO FLOOR AWAKE ALERT ABD SOFT SEE EARLIER PAIN MEDS GIVEN PT STILL RATES PAIN AT 10 BUT PT SLEEPS IF NOT DISTURBED OFF AND ON, PT TAKING ICE CHIPS AND OK WITH CONTINUING PO PAIN MED ON FLOOR REPORT CALLED TO [facility]IR[facility]. DR GROSS AT BEDSIDE AND MAYTE WITH PT ABOUTH SURGERY, NO FAMILY HERE AT THIS TIME.
== END 2021-04-19 17:50 | disposition home or self-care (01) ==
PROVIDERS: Emergency Provider Surgery; PCP Nurse Practitioner Family; Visit Provider Surgery
PROC: 0FT44ZZ Resection of Gallbladder, Percutaneous Endoscopic Approach (ICD-10-PCS; CPT 47562; principal; 2021-04-19 08:00)
DX: Z76.89 Persons encountering health services in other specified circumstances (principal)
CPT/HCPCS: 88304; 96365; J0295; J1170

== ENCOUNTER → 2021-07-08 16:33 | Outpatient (BNVA) | payer MEDICAID, SELFPAY | PROVIDERS: PCP Nurse Practitioner Family; Visit Provider Nurse Practitioner Family | DX: M25.511 Pain in right shoulder (principal) | CPT/HCPCS: 73030 ==

== ENCOUNTER → 2022-09-02 09:18 | Outpatient (BNVA) | payer MEDICAID, SELFPAY | PROVIDERS: PCP Nurse Practitioner; Visit Provider Nurse Practitioner | DX: I10 Essential (primary) hypertension (principal) | CPT/HCPCS: 80053; 84443 ==

== ENCOUNTER → 2023-02-03 08:47 | Outpatient (BNVA) | payer MEDICAID, SELFPAY | PROVIDERS: PCP Nurse Practitioner; Visit Provider Nurse Practitioner Family | DX: I10 Essential (primary) hypertension (principal); L71.9 Rosacea, unspecified | CPT/HCPCS: 80053; 84439; 84443; 85025; 86140; 86160; 86162; 86235; 86255; 86376 ==

== ENCOUNTER → 2023-05-05 09:07 | Outpatient (BNVA) | payer MEDICAID, SELFPAY | PROVIDERS: PCP Nurse Practitioner; Visit Provider Nurse Practitioner Family | DX: M17.9 Osteoarthritis of knee, unspecified (principal); I10 Essential (primary) hypertension; E55.9 Vitamin D deficiency, unspecified; E78.2 Mixed hyperlipidemia; Z79.899 Other long term (current) drug therapy | CPT/HCPCS: 80053; 80061; 81003; 82306; 83036; 84443; 85025; 85651; 86038; 86140; 87086 ==

== ENCOUNTER → 2023-05-13 11:59 | Outpatient (BNVA) | payer MEDICAID, SELFPAY | PROVIDERS: PCP Nurse Practitioner; Visit Provider Nurse Practitioner Family | DX: E78.2 Mixed hyperlipidemia (principal); I10 Essential (primary) hypertension; M17.9 Osteoarthritis of knee, unspecified; Z13.6 Encounter for screening for cardiovascular disorders; R31.9 Hematuria, unspecified | CPT/HCPCS: 81000; 81003; 87086; 88112 ==

== ENCOUNTER → 2023-12-14 10:07 | Outpatient (BNVA) | payer MEDICAID, SELFPAY | PROVIDERS: PCP Nurse Practitioner Family; Visit Provider Nurse Practitioner Family | DX: S93.601A Unspecified sprain of right foot, initial encounter (principal); X58.XXXA Exposure to other specified factors, initial encounter; E78.2 Mixed hyperlipidemia; F32.1 Major depressive disorder, single episode, moderate; I10 Essential (primary) hypertension; M72.2 Plantar fascial fibromatosis | CPT/HCPCS: 73630; 80053; 80061; 81003; 82306; 85025; 87086 ==